=== PATIENT | male | born 1965 | race Caucasian/White ===

== ENCOUNTER 2017-10-23 15:43 | Observation (INO) | payer OTHER ==
[~2017-10-23] VITALS: Ht 162.6 cm; Wt 79.4 kg
--- NOTE | 2017-10-23 16:10 | DIAGNOSTIC IMAGING REPORT ---
CHEST ONE VIEW PORTABLE CLINICAL HISTORY: Chest Pain dyspnea COMPARISON STUDY: No previous studies for comparison. FINDINGS: The bones soft tissues and hemidiaphragms are normal. The cardiomediastinal silhouette is normal. The lungs are clear. The pulmonary vasculature is normal. IMPRESSION: Negative chest. The above report was generated using voice recognition software. It may contain grammatical, syntax or spelling errors. Electronically signed by: Jensen Donato M.D. 10/23/2017 4:09 PM Dictated Date/Time: 10/23/2017 4:09 PM
[2017-10-23 16:11] LABS: HEMOGLOBIN 12.2 g/dL (14.0-18.0); LYMPH % 21.8 %; LYMPH ABS # 0.78 K/uL (1.2-3.4); MEAN CELL VOLUME 85.3 fL (80-100); MEAN CORPUSCULAR HEMOGLOBIN 28.9 pg (25-34); MEAN CORPUSCULAR HGB CONC 33.9 g/dl (32-36); MEAN PLATELET VOLUME 10.9 fL (7.4-10.4); MONO % 8.4 %; NEUT % 69.8 %; PLATELET COUNT 231 K/uL (130-400); RED CELL DISTRIBUTION WIDTH CV 13.3 % (11.5-14.5); RED CELL DISTRIBUTION WIDTH SD 41.1 fL (36.4-46.3); WHITE BLOOD COUNT 3.58 K/uL (4.8-10.8)
[2017-10-23] MEDS ORDERED: AMLO5TAB3 PO (16:31)
[2017-10-23] MEDS ORDERED: ESCI1TAB6 PO (16:31)
[2017-10-23] MEDS ORDERED: ASPITAB47 PO (16:31)
[2017-10-23] MEDS ORDERED: MIRT15TA2 PO (16:31)
[2017-10-23 17:08] LABS: BLOOD UREA NITROGEN 19 mg/dl (7-18); CALCIUM 8.8 mg/dl (8.5-10.1); CARBON DIOXIDE 27 mmol/L (21-32); CKMB 3.1 ng/ml (0.5-3.6); CREATININE 1.25 mg/dl (0.60-1.40); GLUCOSE 110 mg/dl (70-99); POTASSIUM 4.1 mmol/L (3.5-5.1); SODIUM 141 mmol/L (136-145)
--- NOTE | 2017-10-23 17:57 | History and Physical ---
History & Physical Date & Time of Service: Oct 23, 2017 at 17:55 Chief Complaint: Chest Pain Primary Care Physician: Elisabeth GOMEZ History of Present Illness Source: patient, hospital records, EMS (EMS reports) This patient is a 52-year-old male prisoner with a history of hypertension hepatitis C, and major depressive disorder, who presents with chest pain started at 1345 today. He describes it as like needles being poked into his chest just left of the sternum. It was moderate in severity, lasted 3 minutes, came on at rest, went away on its own without intervention. He denies radiation of the pain. He had some associated nausea and lightheadedness that went away when the sensation went away. He went to medical to get checked out and had notable ECG changes from a previous ECG done 6 weeks ago. He had unchanged inferior T-wave inversions, but also had new lateral T-wave inversions. He was brought to the ER. His ECG here was similar to the one obtained at the present. His troponin was negative 1. His other labs were fairly unremarkable. The patient has never had cardiac issues in the past, has never had a stress test. In fact, he has a very intense aerobic workout and lifts weights very frequently in correction without any difficulties. He is a non- smoker, but does have hypertension. There is no family history of any medical issues at all including cardiac issues. Of note, he has had this exact same presentation 2 or 3 times in the past year and has always gone to medical and had an ECG which she was told had some abnormalities but nothing significant like today. He will be admitted for observation on telemetry overnight for ACS rule out and monitoring for arrhythmia. Past Medical/Surgical History PMH: Hepatitis C HTN Major depressive disorder PSH: Right cyst removal from forearm Family History Patient reports no known family medical history. Parents and siblings all healthy Social History Smoking Status: Never Smoker Alcohol Use: none Drug Use: other (Previous cocaine and marijuana use) Housing status: other (Incarcerated) Allergies Coded Allergies: No Known Allergies (Unverified , 10/23/17) Home Medications Scheduled Amlodipine (Norvasc), 5 MG PO DAILY Escitalopram Oxalate (Lexapro), 15 MG PO DAILY Mirtazapine Soltab (Remeron Soltab), 15 MG PO HS Scheduled PRN Rqowvhx-Ljzalaykcrjmm-Yjipkaxh (Pain Reliever Plus), 1 TAB PO BID PRN for Pain Review of Systems Constitutional: No fever, No chills, No sweats, No fatigue Eyes: No problem reported ENT: No problem reported Respiratory: No cough, No shortness of breath, No dyspnea on exertion, No problem reported Cardiovascular: No edema, No palpitations Abdomen: + nausea (Along with his chest pain), No pain (At the end of the 1 week), No vomiting, No diarrhea, No constipation Musculoskeletal: No joint pain Genitourinary - Male: No urinary frequency, No urinary retention, No problem reported Neurologic: No problem reported Psychiatric: No problem reported Endocrine: No problem reported Hematologic / Lymphatic: No problem reported Integumentary: No problem reported Allergic / Immunologic: No problem reported Physical Exam Vital Signs Date Time Temp Pulse Resp B/P (MAP) Pulse Ox O2 Delivery O2 Flow Rate FiO2 10/23/17 17:16 61 16 148/96 98 Room Air 10/23/17 16:27 55 10/23/17 15:50 98 Room Air 10/23/17 15:50 36.9 60 16 167/80 98 Room Air 10/23/17 15:50 98 Room Air General Appearance: WD/WN (Very muscular build), no apparent distress Head: normocephalic, atraumatic Eyes: normal inspection, PERRL, EOMI, sclerae normal ENT: hearing grossly normal, pharynx normal Neck: supple, no adenopathy, thyroid normal, no JVD, no carotid bruits, trachea midline Respiratory/Chest: chest non-tender, lungs clear, normal breath sounds, no respiratory distress, no accessory muscle use Cardiovascular: regular rate, rhythm, no edema, no gallop, no JVD, no murmur Abdomen/GI: normal bowel sounds, non tender, soft, no organomegaly, no pulsatile mass Back: normal inspection, no CVA tenderness Extremities/Musculoskelatal: normal inspection, no calf tenderness, normal capillary refill, no pedal edema, normal range of motion Neurologic/Psych: no motor/sensory deficits, alert, normal mood/affect, oriented x 3 Skin: normal color, warm/dry, no rash Lymphatic: no adenopathy Diagnostics Laboratory Results Results Past 24 Hours Test 10/23/17 15:52 10/23/17 15:55 10/23/17 16:41 Range/Units Creatine Kinase MB Ratio 0.8 0-3.0 White Blood Count 3.58 4.8-10.8 K/uL Red Blood Count 4.22 4.7-6.1 M/uL Hemoglobin 12.2 14.0-18.0 g/dL Hematocrit 36.0 42-52 % Mean Corpuscular Volume 85.3 80-100 fL Mean Corpuscular Hemoglobin 28.9 25-34 pg Mean Corpuscular Hemoglobin Concent 33.9 32-36 g/dl Platelet Count 231 130-400 K/uL Mean Platelet Volume 10.9 7.4-10.4 fL Neutrophils (%) (Auto) 69.8 % Lymphocytes (%) (Auto) 21.8 % Monocytes (%) (Auto) 8.4 % Eosinophils (%) (Auto) 0.0 % Basophils (%) (Auto) 0.0 % Neutrophils # (Auto) 2.50 1.4-6.5 K/uL Lymphocytes # (Auto) 0.78 1.2-3.4 K/uL Monocytes # (Auto) 0.30 0.11-0.59 K/uL Eosinophils # (Auto) 0.00 0-0.5 K/uL Basophils # (Auto) 0.00 0-0.2 K/uL RDW Standard Deviation 41.1 36.4-46.3 fL RDW Coefficient of Variation 13.3 11.5-14.5 % Immature Granulocyte % (Auto) 0.0 % Immature Granulocyte # (Auto) 0.00 0.00-0.02 K/uL D-Dimer < 190 0-500 ug/L FEU Sodium Level 141 136-145 mmol/L Potassium Level 4.1 3.5-5.1 mmol/L Chloride Level 108 98-107 mmol/L Carbon Dioxide Level 27 21-32 mmol/L Anion Gap 5.0 3-11 mmol/L Blood Urea Nitrogen 19 7-18 mg/dl Creatinine 1.25 0.60-1.40 mg/dl Est Creatinine Clear Calc Drug Dose 64.5 ml/min Estimated GFR () 75.2 Estimated GFR (Non- 64.9 BUN/Creatinine Ratio 15.2 10-20 Random Glucose 110 70-99 mg/dl Calcium Level 8.8 8.5-10.1 mg/dl Total Creatine Kinase 377 39-308 U/L Creatine Kinase MB 3.1 0.5-3.6 ng/ml Troponin I < 0.015 0-0.045 ng/ml Diagnostic Radiology Chest x-ray images personally reviewed by me-normal CXR normal EKG ECG with normal sinus rhythm, rate 60, with infero-lateral T-wave inversions other (Changed from previous which only had inferior T-wave inversions) Impression Assessment and Plan This patient is a 52-year-old male prisoner with a history of hypertension hepatitis C, and major depressive disorder, who presents with atypical chest pain with some associated nausea and lightheadedness. He had notable ECG changes at the correction from a previous ECG done 6 weeks ago. He had unchanged inferior T-wave inversions, but also had new lateral T-wave inversions. He was brought to the ER. His ECG here was similar to the one obtained at the present. His troponin was negative 1. His other labs were fairly unremarkable. Atypical chest pain/ECG changes- The patient has never had cardiac issues in the past, has never had a stress test. In fact, he has a very intense aerobic workout and lifts weights very frequently in correction without any difficulties. He is a non-smoker, but does have hypertension. There is no family history of any medical issues at all including cardiac issues. Of note, he has had this exact same presentation 2 or 3 times in the past year and has always gone to medical and had an ECG which she was told had some abnormalities but nothing significant like today. His ECG could be normal for him and a possible LVH with strain pattern and an athletic heart as he is quite muscular build and very athletic. CK mildly elevated at 377 which is likely due to recent exercise. CK-MB is negative -Admit to telemetry for observation for arrhythmia -Trend troponins serially 3 -Check resting echo -Consult Cardiology given abnormal ECG for further opinion on if needs any further testing -Give aspirin 81 mg p.o. 1 now and then once daily in the morning -Check ECG in the morning -Check fasting lipid panel in the morning HTN-mildly hypertensive here in the ER -Continue home amlodipine Hepatitis C-no history of cirrhosis, has no history of treatment -Follow-up as an outpatient Major depressive disorder/insomnia-stable -Continue home Lexapro, Remeron Prophylaxis-Lovenox SQ Disposition-if all testing normal and no further testing deemed necessary, discharge back to correction tomorrow Resuscitation Status Full code VTE Prophylaxis Will order VTE Prophylaxis: Yes Additional Copies To Elisabeth GOMEZ
[2017-10-23] MEDS ORDERED: ASPIRIN 81 MG ECTAB PO STA (18:28)
[2017-10-23] MEDS ORDERED: ACETAMINOPHEN 325 MG TAB PO PRN (18:30)
[2017-10-23] MEDS ORDERED: POLYETHYLENE (MIRALAX) 17 GM PACK PO PRN (18:30)
[2017-10-23] MEDS ORDERED: ALUMINUM/MAGNESIUM/SIMETH (MAALOX MAX) 30 ML UDC PO PRN (18:30)
[2017-10-23 20:31] VITALS: O2SAT 97
[2017-10-23 20:43] VITALS: BP 177/102; PULSE 70; TEMP 36.7; Ht 162.6 cm; Wt 79.4 kg
[2017-10-23] MEDS ORDERED: MIRTAZAPINE SOLTAB 15 MG PO SCH (21:00)
[2017-10-23] MEDS ORDERED: IV FLUIDS COMPLETED PRN (21:00)
--- NOTE | 2017-10-23 21:10 | EMERGENCY ROOM VISIT NOTE ---
History Report prepared by Daphne: Alycia Fnog Under the Supervision of: Cece DunnO. First contact with patient: 15:44 Chief Complaint: CHEST PAIN Stated Complaint: CHEST PAIN History of Present Illness The patient is a 52 year old male who presents to the Emergency Room with complaints of central chest pain beginning at 1345 today. He states that the pain was stabbing and that he has had this pain before. The patient reports that his chest pain lasted for about 3 minutes. He states that moving and breathing do not exacerbate his pain. The patient states that he was given Aspirin and states that he currently does not have the chest pain. He also reports being nauseous and dizzy with the episode but states that his dizziness did not last long. The patient denies having vomiting, diarrhea, a cough, and urinary symptoms. The patient reports a history of hypertension and hepatitis C. Patient denies swelling of calves, recent trips, history of immobilization or recent surgery, prior history of DVT, hemoptysis, history of malignancy, history of smoking. Source of History: patient Onset: 1345 today Position: chest (central ) Quality: stabbing Timing: other (3 minutes ) Associated Symptoms: + nausea, + weakness (dizziness), No cough, No vomiting , No diarrhea, No urinary symptoms Review of Systems See HPI for pertinent positives & negatives. A total of 10 systems reviewed and were otherwise negative. Past Medical & Surgical Medical Problems: (1) Chest pain (2) Hepatitis C (3) HTN (hypertension) Family History Patient reports no known family medical history. Social History Smoking Status: Never Smoker Housing Status: other Current/Historical Medications Scheduled Amlodipine (Norvasc), 5 MG PO DAILY Escitalopram Oxalate (Lexapro), 15 MG PO DAILY Mirtazapine Soltab (Remeron Soltab), 15 MG PO HS Scheduled PRN Ihfuhtt-Ovrqbtcstyfrr-Xyxnrryk (Pain Reliever Plus), 1 TAB PO BID PRN for Pain Allergies Coded Allergies: No Known Allergies (Unverified , 10/23/17) Physical Exam Vital Signs Date Time Temp Pulse Resp B/P (MAP) Pulse Ox O2 Delivery O2 Flow Rate FiO2 10/23/17 17:16 61 16 148/96 98 Room Air 10/23/17 16:27 55 10/23/17 15:50 98 Room Air 10/23/17 15:50 36.9 60 16 167/80 98 Room Air 10/23/17 15:50 98 Room Air Physical Exam GENERAL: Sitting up in bed, shackled, disheveled alert, well appearing, well nourished, no distress, non-toxic EYE EXAM: normal conjunctiva. OROPHARYNX: no exudate, no erythema, lips, buccal mucosa, and tongue normal and mucous membranes are moist NECK: supple, no nuchal rigidity, no adenopathy, non-tender LUNGS: Clear to auscultation. Normal chest wall mechanics HEART: no murmurs, S1 normal and S2 normal ABDOMEN: abdomen soft, non-tender, normo-active bowel sounds, no masses, no rebound or guarding. BACK: Back is symmetrical on inspection and there is no deformity, no midline tenderness, no CVA tenderness. SKIN: no rashes and no bruising UPPER EXTREMITIES: upper extremities are grossly normal. LOWER EXTREMITIES: No pitting edema. NEURO EXAM: Normal sensorium, cranial nerves II-XII grossly intact, normal speech, no gross weakness of arms, no gross weakness of legs. Medical Decision & Procedures ER Provider Diagnostic Interpretation: Radiology results as stated below per my review and the radiologist's interpretation: CHEST ONE VIEW PORTABLE CLINICAL HISTORY: Chest Pain dyspnea COMPARISON STUDY: No previous studies for comparison. FINDINGS: The bones soft tissues and hemidiaphragms are normal. The cardiomediastinal silhouette is normal. The lungs are clear. The pulmonary vasculature is normal. IMPRESSION: Negative chest. The above report was generated using voice recognition software. It may contain grammatical, syntax or spelling errors. Electronically signed by: Jensen Donato M.D. 10/23/2017 4:09 PM Dictated Date/Time: 10/23/2017 4:09 PM Laboratory Results 10/23/17 15:55 Red Blood Count 4.22, Mean Corpuscular Volume 85.3, Mean Corpuscular Hemoglobin 28.9, Mean Corpuscular Hemoglobin Concent 33.9, Mean Platelet Volume 10.9, Neutrophils (%) (Auto) 69.8, Lymphocytes (%) (Auto) 21.8, Monocytes (%) (Auto) 8.4, Eosinophils (%) (Auto) 0.0, Basophils (%) (Auto) 0.0, Neutrophils # (Auto) 2.50, Lymphocytes # (Auto) 0.78, Monocytes # (Auto) 0.30, Eosinophils # (Auto) 0.00, Basophils # (Auto) 0.00 10/23/17 16:41 Test 10/23/17 15:55 10/23/17 16:41 White Blood Count 3.58 K/uL (4.8-10.8) Red Blood Count 4.22 M/uL (4.7-6.1) Hemoglobin 12.2 g/dL (14.0-18.0) Hematocrit 36.0 % (42-52) Mean Corpuscular Volume 85.3 fL (80-100) Mean Corpuscular Hemoglobin 28.9 pg (25-34) Mean Corpuscular Hemoglobin Concent 33.9 g/dl (32-36) Platelet Count 231 K/uL (130-400) Mean Platelet Volume 10.9 fL (7.4-10.4) Neutrophils (%) (Auto) 69.8 % Lymphocytes (%) (Auto) 21.8 % Monocytes (%) (Auto) 8.4 % Eosinophils (%) (Auto) 0.0 % Basophils (%) (Auto) 0.0 % Neutrophils # (Auto) 2.50 K/uL (1.4-6.5) Lymphocytes # (Auto) 0.78 K/uL (1.2-3.4) Monocytes # (Auto) 0.30 K/uL (0.11-0.59) Eosinophils # (Auto) 0.00 K/uL (0-0.5) Basophils # (Auto) 0.00 K/uL (0-0.2) RDW Standard Deviation 41.1 fL (36.4-46.3) RDW Coefficient of Variation 13.3 % (11.5-14.5) Immature Granulocyte % (Auto) 0.0 % Immature Granulocyte # (Auto) 0.00 K/uL (0.00-0.02) D-Dimer < 190 ug/L FEU (0-500) Anion Gap 5.0 mmol/L (3-11) Est Creatinine Clear Calc Drug Dose 64.5 ml/min Estimated GFR () 75.2 Estimated GFR (Non- 64.9 BUN/Creatinine Ratio 15.2 (10-20) Calcium Level 8.8 mg/dl (8.5-10.1) Total Creatine Kinase 377 U/L (39-308) Creatine Kinase MB 3.1 ng/ml (0.5-3.6) Creatine Kinase MB Ratio 0.8 (0-3.0) Troponin I < 0.015 ng/ml (0-0.045) Laboratory results per my review. ECG Per My Interpretation Indication: chest pain Rate (beats per minute): 60 Rhythm: sinus rhythm Findings: T-wave inversion (Inferior and lateral leads) Comparison ECG Date: no prior available ED Course ED COURSE: Vital signs were reviewed and showed hypertension The patients medical record was reviewed The above diagnostic studies were performed and reviewed. ED treatments and interventions as stated above. 1546: The patient was evaluated in room C9. A complete history and physical examination was performed. 1715: I updated the patient. 1735: Upon reevaluation, the patient is resting. I discussed the findings and the treatment plan with the patient. He expresses agreement and understanding. I spoke with Dr. Jamison of the [facility]. He will be evaluated for further management. Medical Decision Differential diagnoses includes but is not limited to acute coronary syndrome, myocardial infarction, pericarditis, pulmonary embolus, aortic dissection, pneumonia, pneumothorax, musculoskeletal, shingles, esophageal. Patient is a 52-year-old male with a past medical history of hypertension that presents to the ER for midsternal chest pain around 2 PM. He notes that lasted for several minutes. He was sent in with an old EKG. EKG today showed flipped T waves in the inferior and lateral. When compared to the old the lateral does appear to be new. His history/story does not appear to be consistent with ACS. Troponin was negative. D-dimer was negative. CBC and BMP was otherwise unremarkable. With the new flipped T waves in the lateral leads and chest pain along with a history of hypertension I did elect to discuss him with internal medicine for observation. He had already received aspirin prior to arrival. He was pain-free. Patient was updated at bedside. Medication Reconcilliation Current Medication List: was personally reviewed by me Blood Pressure Screening Patient's blood pressure: Elevated blood pressure Blood pressure disposition: Elevated BP felt to be situational Consults Time Called: 1710 Consulting Physician: Dr. Aleksandr York Returned Call: [phone] I reviewed the patient's case with Dr. Luis Alberto York who will evaluate the patient for further management. Impression Primary Impression: Chest pain, precordial Additional Impression: Acute electrocardiogram changes Scribe Attestation The scribe's documentation has been prepared under my direction and personally reviewed by me in its entirety. I confirm that the note above accurately reflects all work, treatment, procedures, and medical decision making performed by me. Departure Information Dispostion Being Evaluated By Hospitalist Patient Instructions My [facility] Health Problem Qualifiers
[2017-10-23 21:19] LABS: PTT PATIENT 25.4 SECONDS (21.0-31.0)
[2017-10-23] MEDS ORDERED: ENOXAPARIN 40 MG/0.4 ML SYR SC SCH (22:00)
[2017-10-24 00:01] VITALS: BP 152/82; PULSE 57; TEMP 36.8; O2SAT 97
[2017-10-24 04:32] VITALS: BP 157/88; PULSE 58; TEMP 37; O2SAT 98
[2017-10-24 07:09] LABS: CALCIUM 8.5 mg/dl (8.5-10.1); CREATININE 1.26 mg/dl (0.60-1.40); POTASSIUM 3.9 mmol/L (3.5-5.1)
[2017-10-24 07:44] VITALS: BP 133/81; PULSE 54; TEMP 36.4; O2SAT 98
[2017-10-24] MEDS ORDERED: ASPIRIN 81 MG ECTAB PO SCH (09:00)
[2017-10-24] MEDS ORDERED: ESCITALOPRAM OXALATE 10 MG TAB PO SCH (09:00)
[2017-10-24] MEDS ORDERED: AMLODIPINE BESYLATE 5 MG TAB PO SCH ×2 (09:00)
--- NOTE | 2017-10-24 10:27 | Cardiology Consultation ---
Cardiology Consultation Date of Consultation: Oct 24, 2017. Requesting Physician: Dr. Hutton Reason for Consultation: Chest discomfort, ECG change Pt evaluation today including: conversation w/ patient, physical exam, lab review, review of studies, review of inpatient medication list History of Present Illness This is a 52 year old incarcerated gentleman who presents with intermittent chest discomfort. He believes the first time he had this was April 2016, he has had a at least twice since, 1 prompting his presentation here on October 23, 2017. He has been evaluated at the group home on the other occasions I believe, he was told that his electrocardiogram was different this time than before ( probably lateral T-wave inversion by do not have the one from the group home). He was therefore sent to the emergency room. The discomfort itself however is fleeting, lasts at most several minutes, and is not really associated with activity. He works out regularly and is very muscular, he does not get discomfort with his workouts. 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 It resolved before he was evaluated here or in the group home I believe. He has had no recurrence. He does not have associated symptoms such as palpitations or shortness of breath he feels he has no physical limitation. He has not had a stress test in the past. Past Medical/Surgical History (1) HTN (hypertension) (2) Hepatitis C Family History Patient reports no known family medical history. Social History Smoking Status: Never Smoker History of Alcohol Use: No Review of Systems Constitutional: No fever, No weight loss, No weakness Respiratory: No cough, No wheezing, No shortness of breath, No dyspnea on exertion Cardiac: + see HPI, + chest pain, No orthopnea, No PND, No edema, No palpitations Abdomen: No pain, No nausea, No vomiting, No diarrhea, No GI bleeding Male : No urinary frequency, No nocturia more than once/night, No slowing stream, No sexual dysfunction Neurologic: No paralysis, No weakness, No numbness/tingling, No balance problems Heme: No abnormal bleeding/bruising, No clotting problems Endo: No fatigue Skin: No problem reported All Other Systems: Reviewed and Negative Allergies Coded Allergies: No Known Allergies (Unverified , 10/23/17) Medications Current Inpatient Medications Medications (Trade) Dose Ordered Sig/Gaetano Route Start Time Stop Time Status Last Admin Dose Admin Enoxaparin Sodium (Lovenox Inj) 40 mg Q24H SC 10/23/17 22:00 11/22/17 21:59 10/23/17 23:23 40 MG Acetaminophen (Tylenol Tab) 650 mg Q4H PRN PO 10/23/17 18:30 11/22/17 18:29 Al Hydrox/Mg Hydrox/Simethicone (Maalox Max Susp) 15 ml Q4H PRN PO 10/23/17 18:30 11/22/17 18:29 Aspirin (Ecotrin Tab) 81 mg QAM PO 10/24/17 09:00 11/23/17 08:59 10/24/17 08:59 81 MG Polyethylene (Miralax Powder Packet) 17 gm DAILY PRN PO 10/23/17 18:30 11/22/17 18:29 Escitalopram Oxalate (Lexapro Tab) 15 mg DAILY PO 10/24/17 09:00 11/23/17 08:59 10/24/17 08:55 15 MG Mirtazapine (Remeron Solutab) 15 mg HS PO 10/23/17 21:00 11/22/17 20:59 10/23/17 23:23 15 MG Miscellaneous (Iv Fluids Completed) 1 ea PRN PRN N/A 10/23/17 21:00 10/23/18 20:59 Amlodipine Besylate (Norvasc Tab) 10 mg DAILY PO 10/24/17 09:00 11/23/17 08:59 10/24/17 08:59 10 MG Physical Exam Vital Signs Past 12 Hours Date Time Temp Pulse Resp B/P (MAP) Pulse Ox O2 Delivery O2 Flow Rate FiO2 10/24/17 08:00 Room Air 10/24/17 07:44 36.4 54 16 133/81 (98) 98 Room Air 10/24/17 04:32 37.0 58 17 157/88 (111) 98 Room Air 10/24/17 00:01 36.8 57 17 152/82 (105) 97 Room Air 10/24/17 00:00 Room Air Constitutional: General Apperance: heathly-appearing, well-developed Level of Distress: NAD Psychiatric: Mental Status: active & alert Head: normocephalic Eyes: EOM: EOMI ENMT: normal ENT inspection, hearing grossly normal Neck: supple, no masses Lungs: Respiratory effort: no dyspnea, good air movement Auscultation: breath sounds normal, no wheezing Cardiovascular: Heart Auscultation: RRR, no murmurs, no rubs, no gallops Peripheral Pulses: Bruits: none appreciated Abdomen: Bowel Sounds: normal Inspection & Palpation: soft, no tenderness, guarding & rebound, no masses Musculoskeletal: normal strength (5/5 throughout) Extremities: no edema Neurologic: Cranial Nerves: grossly intact Sensation: grossly intact Data Laboratory Results: Last 24 Hours Test 10/23/17 15:52 10/23/17 15:55 10/23/17 16:41 10/24/17 06:14 Creatine Kinase MB Ratio 0.8 White Blood Count 3.58 K/uL Red Blood Count 4.22 M/uL Hemoglobin 12.2 g/dL Hematocrit 36.0 % Mean Corpuscular Volume 85.3 fL Mean Corpuscular Hemoglobin 28.9 pg Mean Corpuscular Hemoglobin Concent 33.9 g/dl Platelet Count 231 K/uL Mean Platelet Volume 10.9 fL Neutrophils (%) (Auto) 69.8 % Lymphocytes (%) (Auto) 21.8 % Monocytes (%) (Auto) 8.4 % Eosinophils (%) (Auto) 0.0 % Basophils (%) (Auto) 0.0 % Neutrophils # (Auto) 2.50 K/uL Lymphocytes # (Auto) 0.78 K/uL Monocytes # (Auto) 0.30 K/uL Eosinophils # (Auto) 0.00 K/uL Basophils # (Auto) 0.00 K/uL RDW Standard Deviation 41.1 fL RDW Coefficient of Variation 13.3 % Immature Granulocyte % (Auto) 0.0 % Immature Granulocyte # (Auto) 0.00 K/uL Prothrombin Time 10.7 SECONDS Prothromb Time International Ratio 1.0 Activated Partial Thromboplast Time 25.4 SECONDS Partial Thromboplastin Ratio 1.0 D-Dimer < 190 ug/L FEU Sodium Level 141 mmol/L 141 mmol/L Potassium Level 4.1 mmol/L 3.9 mmol/L Chloride Level 108 mmol/L 110 mmol/L Carbon Dioxide Level 27 mmol/L 26 mmol/L Anion Gap 5.0 mmol/L 5.0 mmol/L Blood Urea Nitrogen 19 mg/dl 19 mg/dl Creatinine 1.25 mg/dl 1.26 mg/dl Est Creatinine Clear Calc Drug Dose 64.5 ml/min 63.8 ml/min Estimated GFR () 75.2 74.5 Estimated GFR (Non- 64.9 64.2 BUN/Creatinine Ratio 15.2 15.4 Random Glucose 110 mg/dl 93 mg/dl Calcium Level 8.8 mg/dl 8.5 mg/dl Total Creatine Kinase 377 U/L Creatine Kinase MB 3.1 ng/ml Troponin I < 0.015 ng/ml < 0.015 ng/ml Triglycerides Level 62 mg/dl Cholesterol Level 158 mg/dl HDL Cholesterol 82 mg/dl LDL Cholesterol, Calculated 64 mg/dl VLDL Cholesterol, Calculated 12 mg/dl Cholesterol/HDL Ratio 1.9 Imaging: Echo done and pending EKG: Sinus rhythm, nonspecific T-wave inversions in V5 and V6. Telemetry reviewed: His rhythm, sinus bradycardia, no significant arrhythmia Assessment & Plan 1. Chest discomfort: The character of the chest discomfort is suggestive of noncardiac chest discomfort, however with the electrocardiographic changes it is a little bit worrisome. Cardiac enzymes are negative but his symptoms were brief. I think would be prudent to do a stress test, I am little reluctant to do heart catheterization just with some nonspecific T-wave abnormalities and atypical chest discomfort. I suggested that we do a stress test this morning, which I believe we can do based on our schedule, but he does not want anything done. He has not smoked, his cholesterol is excellent. He feels that the chest discomfort is not of concern and he would prefer to go back to the present. I therefore not scheduled anything. 2. Hypertension: He does have hypertension here, I believe he has in the past and is on amlodipine. He may need a higher dose. Thank you for allowing me to participate in his care.
[2017-10-24 12:14] VITALS: BP 159/85; PULSE 66; TEMP 36.6; O2SAT 98
--- NOTE | 2017-10-24 14:05 | ECHOCARDIOGRAM REPORT ---
*NOTICE TO RECEIVING CONSTITUTION PARTY AGENCY This information is strictly Confidential and protected under [place] law. [place] law prohibits you from making any further disclosure of this information unless further disclosure is expressly permitted by the written consent of the person to whom it pertains or is authorized by law. A general authorization for the release of medical or other information is not sufficient for this purpose. Hospital accepts no responsibility if the information is made available to any other person, INCLUDING THE PATIENT. Interpretation Summary * Name: SERGEY GARCIA [id number] Study Date: 10/24/2017 07:08 AM BP: 157/88 mmHg * Patient Location: C.2E\S\E208\S\1 HR: 58 * : 1965 (M/d/yyyy) Gender: Male Height: 64 in * Age: 52 yrs Ethnicity: CA Weight: 175 lb * Ordering Physician: Kathy Htuton * Referring Physician: Elisabeth GOMEZ * Performed By: Ana Valdivia RDCS * * Reason For Study: CHEST PAIN * BSA: 1.8 m2 * -- Conclusions -- * 1. Normal LV size. Moderate concentric LVH. * 2. Normal LV systolic function. LVEF 60-65%. No regional wall motion abnormalities. * 3. Normal RV size and function. * 4. No significant valvular pathology. * 5. Normal estimated PA and RA pressures. * 6. No prior studies for comparison. Procedure Details * A complete two-dimensional transthoracic echocardiogram was performed (2D, M-mode, Doppler and color flow Doppler). Left Ventricle * The left ventricle is grossly normal size. * There is moderate concentric left ventricular hypertrophy. * Ejection Fraction = 60-65%. * No regional wall motion abnormalities noted. Right Ventricle * The right ventricle is grossly normal size. * The right ventricular systolic function is normal as assessed by tricuspid annular plane systolic excursion (TAPSE) (normal >1.5 cm). Atria * The left atrial size is normal. * The right atrium is mildly dilated. * No ASD detected; PFO is not assessed. Mitral Valve * The mitral valve is grossly normal. * There is borderline mitral valve prolapse. * There is no mitral valve stenosis. * There is trace mitral regurgitation. Tricuspid Valve * The tricuspid valve is not well visualized, but is grossly normal. * There is mild tricuspid regurgitation. * Right ventricular systolic pressure is normal. Aortic Valve * The aortic valve opens well. * The aortic valve is trileaflet. * No hemodynamically significant valvular aortic stenosis. * Trace aortic regurgitation. Pulmonic Valve * The pulmonary valve is inadequately visualized, but the Doppler data is adequate for interpretation. * Trace pulmonic valvular regurgitation. Great Vessels * The aortic root and proximal ascending aorta are normal sized. Pericardium/Pleural * There is no pericardial effusion. Great Vessels * Normal inferior vena cava size and collapsability with sniff indicates a normal right atrial pressure of 3 mmHg MMode 2D Measurements and Calculations IVSd 1.7 cm IVSs 2.2 cm LVIDd 4.1 cm LVIDs 2.6 cm LVPWd 1.4 cm LVPWs 2.0 cm IVS/LVPW 1.2 FS 37.3 % EDV(Teich) 73.9 ml ESV(Teich) 23.8 ml EF(Teich) 67.8 % EDV(cubed) 68.5 ml ESV(cubed) 16.9 ml EF(cubed) 75.4 % % IVS thick 29.0 % % LVPW thick 41.7 % LV mass(C)d 259.9 grams LV mass(C)dI 140.6 grams/m\S\2 LV mass(C)s 249.4 grams LV mass(C)sI 135.0 grams/m\S\2 SV(Teich) 50.1 ml SI(Teich) 27.1 ml/m\S\2 SV(cubed) 51.7 ml SI(cubed) 28.0 ml/m\S\2 ACS 1.7 cm LA dimension 3.5 cm asc Aorta Diam 3.0 cm LVOT diam 2.0 cm LVOT area 3.1 cm\S\2 LVAd ap4 29.0 cm\S\2 LVLd ap4 8.5 cm EDV(MOD-sp4) 82.5 ml EDV(sp4-el) 84.3 ml LVAs ap4 14.5 cm\S\2 LVLs ap4 6.9 cm ESV(MOD-sp4) 27.1 ml ESV(sp4-el) 25.8 ml EF(MOD-sp4) 67.2 % EF(sp4-el) 69.4 % LVAd ap2 23.0 cm\S\2 LVLd ap2 8.0 cm EDV(MOD-sp2) 54.8 ml EDV(sp2-el) 55.9 ml LVAs ap2 12.5 cm\S\2 LVLs ap2 7.0 cm ESV(MOD-sp2) 18.0 ml ESV(sp2-el) 18.9 ml EF(MOD-sp2) 67.1 % EF(sp2-el) 66.2 % LVLd %diff -5.37 % EDV(MOD-bp) 68.8 ml LVLs %diff 0.98 % ESV(MOD-bp) 21.8 ml EF(MOD-bp) 68.4 % SV(MOD-sp4) 55.4 ml SI(MOD-sp4) 30.0 ml/m\S\2 SV(MOD-sp2) 36.8 ml SI(MOD-sp2) 19.9 ml/m\S\2 SV(MOD-bp) 47.1 ml SI(MOD-bp) 25.5 ml/m\S\2 SV(sp4-el) 58.5 ml SI(sp4-el) 31.6 ml/m\S\2 SV(sp2-el) 37.0 ml SI(sp2-el) 20.0 ml/m\S\2 Doppler Measurements and Calculations MV E max helder 63.8 cm/sec MV A max helder 46.4 cm/sec MV E/A 1.4 MV dec time 0.24 sec Ao V2 max 99.2 cm/sec Ao max PG 3.9 mmHg Ao max PG (full) 1.7 mmHg CELINA(V,A) 2.3 cm\S\2 CELINA(V,D) 2.3 cm\S\2 LV V1 max PG 2.3 mmHg LV V1 max 75.1 cm/sec PA V2 max 53.6 cm/sec PA max PG 1.1 mmHg PI end-d helder 96.6 cm/sec TR max helder 239.7 cm/sec
[2017-10-24 15:37] VITALS: BP 163/91; PULSE 57; TEMP 37; O2SAT 98
[2017-10-24] MEDS ORDERED: ASPI-461 PO (16:06)
[2017-10-24] MEDS ORDERED: AMLO10TA3 PO (16:06)
--- NOTE | 2017-10-24 16:11 | Discharge Instructions ---
Discharge Instructions Date of Service Oct 24, 2017. Admission Reason for Admission: Chest Pain Discharge Discharge Diagnosis / Problem: chest pain, no evidence of heart attack Discharge Goals Goal(s): Learn about illness, Diagnostic testing, Therapeutic intervention Activity Recommendations Activity Limitations: as noted below Until outpatient stress test is completed NO - 1. heavy lifting over 20 pounds 2. heavy exertional activity (lifting weights, heavy aerobic activity, etc) LIGHT activities are OK. . Instructions / Follow-Up Instructions / Follow-Up 1. INCREASE amlodipine to 10mg once daily for your high blood pressure. 2. START aspirin 81mg once daily every day. 3. SCHEDULE/OBTAIN exercise cardiac stress test within 1 week if possible due to abnormal EKG and recent chest pain. [facility] Cardiology can perform this or it can be done through the [facility]. 4. Return to [facility] if - * you experience recurrent chest pain * you have shortness of breath * you develop left arm pain, jaw pain, or neck pain * you have nausea, vomiting, or sweating with any of the above symptoms Current Hospital Diet Patient's current hospital diet: Regular Diet Discharge Diet Recommended Diet: AHA Diet (Heart Healthy) Procedures Procedures Performed: echocardiogram - -- Conclusions -- * 1. Normal LV size. Moderate concentric LVH. * 2. Normal LV systolic function. LVEF 60-65%. No regional wall motion abnormalities. * 3. Normal RV size and function. * 4. No significant valvular pathology. * 5. Normal estimated PA and RA pressures. * 6. No prior studies for comparison. Pending Studies Studies pending at discharge: no Laboratory Results Lipid Panel Test 10/24/17 06:14 Range/Units Triglycerides Level 62 0-150 mg/dl Cholesterol Level 158 0-200 mg/dl HDL Cholesterol 82 mg/dl Cholesterol/HDL Ratio 1.9 LDL Cholesterol, Calculated 64 mg/dl Medical Emergencies . Who to Call and When: Medical Emergencies: If at any time you feel your situation is an emergency, please call 911 immediately. . Non-Emergent Contact Non-Emergency issues call your: Primary Care Provider ([facility] medical director) Call Non-Emergent contact if: temperature is above 100.5, your pain is not controlled, your pain is worsening, your pain is unusual for you, your pain is concerning you, you have any medication questions . . "Provider Documentation" section prepared by Mateo Burger. .
--- NOTE | 2017-10-24 16:21 | Discharge Summary ---
Discharge Summary Date of Service Oct 24, 2017. Discharge Summary Admission Date: Oct 23, 2017 at 18:25 Discharge Date: Oct 24, 2017 Discharge Disposition: Home ([facility]) Principal Diagnosis: chest pain, ACS ruled out Problems/Secondary Diagnoses: 1. HTN 2. hepatitis C 3. major depression 4. moderate LVH 5. mild anemia - outpatient work-up recommended Procedures: 1. Echocardiogram: -- Conclusions -- * 1. Normal LV size. Moderate concentric LVH. * 2. Normal LV systolic function. LVEF 60-65%. No regional wall motion abnormalities. * 3. Normal RV size and function. * 4. No significant valvular pathology. * 5. Normal estimated PA and RA pressures. * 6. No prior studies for comparison. 2. chest x-ray - normal, no infiltrates. Consultations: cardiology - Lyndon Rene MD Medication Reconciliation New Medications: Aspirin (Aspirin) 81 Mg Tab 81 MG PO QAM, #90 TABS 3 Refills Changed Medications: Amlodipine (Norvasc) 10 Mg Tab 10 MG PO DAILY, #90 TAB 3 Refills (Changed from: Amlodipine (Norvasc) 5 Mg Tab 5 Mg PO DAILY) Continued Medications: Lsacmyy-Synhsmwelkhfy-Jwdmzzsn (Pain Reliever Plus) 1 Tab Tab 1 TAB PO BID PRN for Pain Escitalopram Oxalate (Lexapro) 5 Mg Tab 15 MG PO DAILY, TAB Mirtazapine Soltab (Remeron Soltab) 15 Mg Soltab 15 MG PO HS, TAB Discharge Exam Physical Exam: General Appearance: WD/WN, no apparent distress, + pertinent finding ( muscular, very fit) ENT: pharynx normal Neck: no JVD Respiratory/Chest: lungs clear, no respiratory distress, no accessory muscle use, + pertinent finding (nontender to palpation) Cardiovascular: no gallop, no murmur, normal peripheral pulses, + bradycardia Abdomen / GI: normal bowel sounds, non tender, soft, no organomegaly Extremities: no pedal edema, + pertinent finding (radial pulses 2+ b/l ) Neurologic/Psychiatric: alert, oriented x 3 Hospital Course HISTORY OF PRESENT ILLNESS: This patient is a 52-year-old male prisoner with a history of hypertension hepatitis C, and major depressive disorder, who presents with chest pain started at 1345 today. He describes it as like needles being poked into his chest just left of the sternum. It was moderate in severity, lasted 3 minutes, came on at rest, went away on its own without intervention. He denies radiation of the pain. He had some associated nausea and lightheadedness that went away when the sensation went away. He went to medical to get checked out and had notable ECG changes from a previous ECG done 6 weeks ago. He had unchanged inferior T-wave inversions, but also had new lateral T-wave inversions. He was brought to the ER. His ECG here was similar to the one obtained at the present. His troponin was negative 1. His other labs were fairly unremarkable. The patient has never had cardiac issues in the past, has never had a stress test. In fact, he has a very intense aerobic workout and lifts weights very frequently in [facility] without any difficulties. He is a non- smoker, but does have hypertension. There is no family history of any medical issues at all including cardiac issues. Of note, he has had this exact same presentation 2 or 3 times in the past year and has always gone to medical and had an ECG which she was told had some abnormalities but nothing significant like today. HOSPITAL COURSE: The patient was placed on telemetry and had no dysrhythmia while here. Serial troponins were normal. He had no recurrent chest symptoms while hospitalized. Serial EKGs showed inferior T wave changes and anterolateral changes as well. 2D echocardiogram showed normal EF, normal LV wall motion, and normal valvular function. Echo did demonstrate moderate LVH, however. The patient was advised to have a stress test while hospitalized but he refused , instead preferring to be discharged back to the [facility] and have it done as an outpatient. Thus, at time of discharge, the following were recommended - 1. INCREASE in amlodipine to 10mg once daily for uncontrolled high blood pressure 2. ADDITION of aspirin 81mg daily 3. LIMITING heavy lifting and exertional activity until the stress test is completed 4. SCHEDULING/OBTAINING an exercise stress test within 1 week of discharge Ideally the patient should be on a beta hernandez for his LVH but unfortunately his heart rate is <60 most of the day precluding the use of such. Lastly, the patient was noted to be mildly anemic during this stay and outpatient work-up is advised. Total Time Spent: Greater than 30 minutes This includes examination of the patient, discharge planning, medication reconciliation, and communication with other providers. Discharge Instructions Please refer to the electronic Patient Visit Report (Discharge Instructions) for additional information. Follow-Up 1. with medical receptionist medical assistant of [facility] Elisabeth within 48 hours 2. outpatient exercise stress test needed within 1 week Additional Copies To Elisabeth GOMEZ
[2017-10-24 16:27] VITALS: BP 163/91; PULSE 57; TEMP 37; O2SAT 98
== END 2017-10-24 17:06 ==
LOC: C.EDC 15:47 → C.2E 18:25 → ENRESERV 19:38
PROVIDERS: ADMIT Family Medicine; ATTEND Internal Medicine
DX: R07.9 Chest pain, unspecified (principal); I10 Essential (primary) hypertension; B19.20 Unspecified viral hepatitis C without hepatic coma; F32.9 Major depressive disorder, single episode, unspecified; D64.9 Anemia, unspecified; Z79.82 Long term (current) use of aspirin